=== PATIENT | male | born 1940 | race Caucasian/White ===

== ENCOUNTER 2016-10-27 16:11 | Observation (INO) | payer MEDICARE ==
[2016-10-27] MEDS ORDERED: ACETAMINOPHEN 325 MG TABLET ONE ×2 (17:09→18:17)
[2016-10-27] MEDS ORDERED: ACETAMINOPHEN 325 MG TABLET PO ONE (17:10)
--- OUTSIDE RECORDS SUMMARY | 2016-10-27 17:12 | XMS REPORT | Continuity of Care Document ---
:1940 Author Organization [facility] ([facility]) Address [address] [place] [address] Phone [phone] Care Team Providers Name Role Phone Jo AnnSheldon mejía Primary Care Provider [phone] Source Comments This disclosure is being made pursuant to the Care Everywhere program, applicable federal and state laws, and may not contain all informaitonavailable regarding this patient.[facility] ([facility]) Active Allergies and Adverse Reactions No Known Allergies Current Medications Prescription Sig. Disp. Refills Start Date End Date Status aspirin 81 mg tablet Take 81 mg by mouth Active daily. cloNIDine 0.1 mg Take 0.05 mg by Active tablet mouth 2 times daily . doxazosin 4 mg tablet Take 4 mg by mouth Active daily. finasteride 5 mg Take 5 mg by mouth Active tablet daily. glimepiride 4 mg Take 8 mg by mouth Active tablet Every morning. labetalol 300 mg Take 600 mg by mouth Active tablet 2 times daily. insulin glargine inject 50 Units Active (LANTUS) 100 unit/mL subcutaneously at injection vial bedtime. furosemide 40 mg Take 40 mg by mouth Active tablet daily. lisinopril 40 mg Take 40 mg by mouth Active tablet 2 times daily. metFORMIN (GLUMETZA) Take 1,000 mg by Active 500 mg XR tablet mouth at bedtime. simvastatin 20 mg Take 20 mg by mouth Active tablet every evening. albuterol-ipratropium Use 3 mL by Active (DUONEB) 2.5-0.5 mg/3 inhalation every 6 mL inhalation hours as needed. solution amLODIPine 2.5 mg Take 2.5 mg by mouth Active tablet every morning before breakfast. flunisolide 0.025 % use 2 Sprays into 25 mL 11 09/14/2014 Active nasal spray both nostrils 2 times daily. Indications: CHRONIC NON-ALLERGIC RHINITIS spironolactone 25 mg Take 0.5 Tabs (12.5 30 Tab 6 01/02/2015 Active tablet mg total) by mouth daily cyanocobalamin Take 1,000 mcg by Active (VITAMIN B-12) 1,000 mouth daily mcg tablet folic acid 400 mcg Take 0.8 mg by mouth Active tablet daily rivastigmine 9.5 Apply 1 Patch (9.5 30 Patch 11 07/17/2016 Active mg/24 hour patch mg total) topically daily. Active Problems Problem Noted Date Mild cognitive impairment 06/10/2015 Hypokalemia 03/17/2013 Hypertension 03/17/2013 Hyperaldosteronism 03/17/2013 Type II or unspecified type diabetes mellitus without mention of 02/01/2013 complication, not stated as uncontrolled HTN (hypertension) 02/01/2013 Skin cancer 02/01/2013 Pneumonia, organism unspecified 02/01/2013 Calculus of kidney 09/27/2006 Calculus of ureter 09/27/2006 Resolved Problems Problem Noted Date Resolved Date Speech problem 01/03/2015 06/10/2015 Overview: Started rather acutely approximately 6 months ago, per pt Immunizations Name Dates Previously Given Next Due Influenza, unspecified 06/18/2015,06/30/2014,05/30/2012 Pneumococcal Polysaccharide, PPSV23 03/09/2013 (Pneumovax 23) Pneumococcal, unspecified 08/30/2010 Social History Tobacco Use Types Packs/Day Years Used Date Never Smoker Smokeless Tobacco: Never Used Tobacco Cessation:Counseling Given: Yes Comments: Last Filed Vital Signs Vital Sign Reading Time Taken Blood Pressure 194/90 07/17/2016 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 Pulse 81 07/17/2016 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 Temperature 37.6 C (99.7 F) 01/02/2015 10:25 AM CDT Respiratory Rate 20 01/02/2015 10:25 AM CDT Height 1.778 m (5' 10") 07/17/2016 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 Weight 96.9 kg (213 lb 10 oz) 07/17/2016 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 Body Mass Index 30.65 07/17/2016 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 Oxygen Saturation 96% 07/17/2016 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 Plan of Care Date Type Specialty Providers Description 11/20/2016 Appointment Neurology Yoselyn Boston MD Chief Comp: Patient [address] [place] [address] [phone] (Fax) Health Maintenance Due Date Last Done Comments Hepatitis B Vaccine (1 of 3 - Primary 1940 Series) Tdap Vaccine 11/18/1951 DIABETIC: Cholesterol 1958 Diabetic: Hdl 1958 DIABETIC: Hemoglobin A1C 1958 Diabetic: Ldl 1958 DIABETIC: Microalbumin 1958 DIABETIC: Triglycerides 1958 Td Vaccine 1958 Colonoscopy 1990 Prostate Cancer Screening 1990 Zoster Vaccine 2000 DIABETIC: Foot Exam 03/28/2013 DIABETIC: Retinal Eye Exam 03/28/2013 Pneumococcal Vaccine (2 of 2 - PCV13) 03/09/2014 03/09/2013 Influenza Vaccine: Seasonal (#1) 03/30/2016 06/18/2015, 06/30/2014, 05/30/2012 Results from Last 3 Months Not on file
--- NOTE | 2016-10-27 17:21 | ERNOTE ---
Date of Service: 10/27/16 Time Seen by Provider: 10/27/16 17:03 Stated Complaint: DIAPHORETIC, LOW O2 Presenting Symptoms:: cough Source: patient, family, RN notes reviewed Exam Limitations: hard of hearing Immunizations: IMMUNIZATION HX Immunizations Up to Date Yes History of Influenza Vaccine Yes Hx Pneumococcal Vaccination No Allergies/Adverse Reactions: Allergies No Known Allergies Allergy (Verified 10/31/12 21:26) Home Medications: HOME MEDICATIONS Albuterol Sulfate/Ipratropium [Duoneb 2.5-0.5MG/3ML Soln] 3 ml IH QID PRN [Last Taken Unknown] Amlodipine Besylate [Norvasc] 2.5 mg PO BID 10/27/16 [Last Taken Unknown] Aspirin [Aspirin EC] 81 mg PO DAILY 10/27/16 [Last Taken Unknown] Clonidine HCl [Clonidine HCl ER] 0.1 mg PO BID 10/27/16 [Last Taken Unknown] Cyanocobalamin (Vitamin B-12) [B-12] 1,000 mcg PO DAILY 10/27/16 [Last Taken Unknown] Doxazosin Mesylate [Cardura Xl] 4 mg PO DAILY 10/27/16 [Last Taken Unknown] Finasteride [Proscar] 5 mg PO DAILY 10/27/16 [Last Taken Unknown] Folic Acid 0.8 mg PO DAILY 10/27/16 [Last Taken Unknown] Furosemide [Lasix] 40 mg PO DAILY 10/27/16 [Last Taken Unknown] Glimepiride 8 mg PO DAILY 10/27/16 [Last Taken Unknown] Insulin Glargine,Hum.rec.anlog [Lantus] 25 units SC HS 10/27/16 [Last Taken Unknown] Insulin Glargine,Hum.rec.anlog [Lantus] 45 units SC DAILY 10/27/16 [Last Taken Unknown] Labetalol HCl [Trandate] 600 mg PO BID 10/27/16 [Last Taken Unknown] Lisinopril [Zestril] 40 mg PO DAILY 10/27/16 [Last Taken Unknown] Melatonin 5 mg PO HS 10/27/16 [Last Taken Unknown] Metformin HCl [Metformin HCl ER] 1,000 mg PO HS 10/27/16 [Last Taken Unknown] Metformin HCl [Metformin HCl ER] 500 mg PO DAILY 10/27/16 [Last Taken Unknown] Rivastigmine [Exelon] 9.5 each TD 10/27/16 [Last Taken Unknown] Simvastatin 20 mg PO DAILY 10/27/16 [Last Taken Unknown] Spironolactone [Aldactone] 12.5 mg PO DAILY 10/27/16 [Last Taken Unknown] - History of Present Ilness Narrative: 75 year old male arrived to the ED. Walk in clinic stated he was diaphoretic and confused. states that his condition changed today after lunch when he became SOB and confused. stated that he has had a cough for about a week and patient states he has had some phlegm with the cough. denies any other issues at this time. Timing: getting worse Severity: moderate Modifying Factors - Improves: Reports: rest Modifying Factors - Worsens: Reports: activity Associated Symptoms: Reports: cough, shortness of breath, wheezing, fever/ chills. Denies: chest pain/soreness, nasal congestion, nasal drainage, dizziness, lightheadedness, earache, headache, sore throat, muscle aches Prior Treatment: Reports: other - sent here from walk in clinic Review of Systems - Review of Systems Constitutional: Present: See HPI, fever, diaphoresis EYE: Present: no symptoms reported ENT: Present: no symptoms reported Respiratory: Present: shortness of breath, cough, wheezing Cardiology: Present: no symptoms reported - tachy Gastrointestinal/Abdominal: Present: no symptoms reported Genitourinary: Present: no symptoms reported Musculoskeletal: Present: no symptoms reported Skin: Present: no symptoms reported Neurological: Present: See HPI, pre-existing deficit - per he has dementia Endocrine: Present: no symptoms reported, other - glucose 300+ Hematologic/Lymphatic: Present: no symptoms reported Psych: Present: no symptoms reported - Patient's Past Medical History Patient History - Medical: Anxiety, Diabetes Type 2 Insulin Dependent, Depression Patient History - Cardiac/Respiratory: Hypertension, Hyperlipidemia Patient History - Cancer: No Hx of Cancer Patient History - Other: None - Social History Living Situations: home Abuse History: No History of abuse Psych History: Hx of Anxiety, Hx of Depression Smoking Status: Never smoker Have you smoked in the past 12 months: No Do you dip or chew tobacco: No Alcohol Use: none Drug Use: none - Immunizations Immunizations Up to Date: Yes Hx Pneumococcal Vaccination: No History of Influenza Vaccine: Yes Physical Exam - Physical Exam General Appearance: Present: wd/wn, alert, moderate distress Eye Exam: Normal inspection: bilateral Ears, Nose, Throat: Present: normal ENT inspection, normal pharynx. Absent: nasal congestion, sinus pain/drainage Neck: Present: normal inspection Respiratory: Present: accessory muscle use, decreased breath sounds, rhonchi - left lobe very coarse Cardiovascular/Chest: Present: tachycardia Peripheral Pulses: N=norm/S=strong/W=weak/B=bound/A=absent: Radial (R): Normal, Radial (L): Normal, Dorsalis-pedis (R): Normal, Dorsalis-pedis (L): Normal Gastrointestinal/Abdominal: Present: normal bowel sounds, nontender Back Exam: Present: normal inspection Extremity Exam: Present: normal inspection Neurological Exam: Present: alert, oriented, normal mood/affect Skin Exam: Present: diaphoresis. Absent: skin rash Lymphatic Exam: Present: no adenopathy ED Progress - Results and Orders Patient's Lab Results:: I have reviewed the patient's lab results. - Vital Signs Patient's Vital Signs:: I have reviewed the patient's vital signs. Vital Signs: Vital Signs 10/27/16 16:17 Temperature 38.7 C H Pulse Rate 98 Respiratory 23 H Rate Blood Pressure 167/80 O2 Sat by Pulse 94 Oximetry - EKG EKG: NSR EKG read: Reviewed by me - X-Ray X-Ray #1 X-Ray: chest Interpretation: Reviewed by me X-ray Comments: Findings: The cardiac silhouette is mildly prominent with left ventricular prominence; this is unchanged. The mediastinum and hilum appear unchanged. Again seen is a thoracic scoliosis, which is unchanged. There is some linear density in both lung bases, most likely reflecting scar or atelectasis. This is similar to the previous study. The lung alvares are otherwise clear. I do not see evidence for an infiltrate, effusion or pulmonary edema. IMPRESSION: 1. NO ACUTE CARDIOPULMONARY PROCESS. 2. BORDERLINE PROMINENT HEART, UNCHANGED. 3. LINEAR SCARRING/ATELECTASIS IN BOTH LUNG BASES. 4. THORACIC SCOLIOSIS Electronically signed by Calin Villaseñor M.D.. - CT/Ultrasound CT/Ultrasound Narrative: PE protocol performed Limited eval was able to be complete. Prelim report showed subtle decreass filling defect-density left lower PA, Image 79 may represent artifact although very subtle pulmonary embolus not excluded. - Progress/Reassessment Chief Complaint: Cough Progress:: Unchanged Plan - Plan Plan: blood cultures x 2 urine reflex. admit to med surg. Patient presented with cough and fever, cbc shows left shift. No obv PNA on CXR. patient continues to have crackles and ronchi in left lung. O2 sats in 90's which is not normal for this patient. hospitalis contacted and will admit for obvs status Departure - Departure Clinical Impression: COPD exacerbation Disposition: [facility] Condition: Stable
[2016-10-27 17:23] LABS: Hematocrit 40.8 % (42.0-52.0); Mean Cell Volume 89.7 fl (78-100); Mean Corpuscular Hemoglobin 30.8 pg (27-31); Mean Corpuscular Hgb Conc 34.3 g/dl (32-36); Mean Platelet Volume 10.2 fl (6.0-9.5); Neutrophil # 9.2 K/mm3 (1.3-6.0); Neutrophil % 89.3 % (42-75.0); Platelet Count 190 K/mm3 (150-450); Red Blood Count 4.55 M/mm3 (4.7-6.0); Red Cell Distribution Width 12.5 % (11.5-14.0); White Blood Count 10.3 K/mm3 (4.0-10.5)
[2016-10-27 17:39] LABS: Anion Gap 13.8 mmol/L (6.8-13.8); BUN/Creatinine Ratio 16.2 (9.0-21.6); Bilirubin, Total 0.8 mg/dL (0.0-1.1); Ca. Corrected For Albumin 8.6 mg/dL (8.4-10.2); Calcium * 8.9 mg/dL (7.9-10.9); Potassium 4.8 mmol/L (3.4-4.6); Total Protein 7.3 gm/dL (6.2-8.2)
[2016-10-27] MEDS ORDERED: ALBUTEROL SULFATE/IPRATROPIUM 3 ML NEBU IH ONE ×2 (18:10→18:16)
[2016-10-27] MEDS ORDERED: NORMAL SALINE 1,000 ML IV ONE (18:40)
[2016-10-27 19:01] LABS: Urine Bilirubin Negative (NEGATIVE); Urine Blood Negative /ul (NEGATIVE); Urine Ketone 5 mg/dL (NEGATIVE); Urine Nitrite Negative (NEGATIVE); Urine Protein Negative (NEGATIVE); Urine Specific Gravity 1.015 SP.GR. (1.005-1.030); Urine Urobilinogen Normal (NORMAL); Urine pH 5.5 pH (5.0-7.0)
[2016-10-27 19:14] LABS: Urine Appearance Clear; Urine Bacteria None Seen; Urine Color Yellow; Urine Mucus Few - 1+; Urine RBC None Seen /hpf (0-5); Urine WBC 0-5 /hpf (0-5)
--- OUTSIDE RECORDS SUMMARY | 2016-10-27 21:38 | XMS REPORT | Continuity of Care Document ---
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 Pulse 81 07/17/2016 4:02 PM [employer] SKILLS CO[employer] Temperature 37.6 C (99.7 F) 01/02/2015 10:25 AM CDT Respiratory Rate 20 01/02/2015 10:25 AM CDT Height 1.778 m (5' 10") 07/17/2016 4:02 PM LIFE SK[employer] COACH Weight 96.9 kg (213 lb 10 oz) 07/17/2016 4:02 PM LIFE SK[employer] COACH Body Mass Index 30.65 07/17/2016 4:02 PM [employer] SK[employer] COACH Oxygen Saturation 96% 07/17/2016 4:02 PM LIFE SKILL[employer] COACH Plan of Care Date Type Specialty Providers Description 11/20/2016 Appointment Neurology Yoselyn Boston MD Chief Comp: Patient [address] [place] [address] [phone] (Fax) Health Maintenance Due Date Last Done [...]
[2016-10-27] MEDS ORDERED: guaiFENesin 100 MG/5 ML BTL PO PRN (23:29)
[2016-10-27] MEDS ORDERED: BENZONATATE 100 MG CAPSULE PO PRN (23:31)
[2016-10-27] MEDS ORDERED: ALBUTEROL SULFATE/IPRATROPIUM 3 ML NEBU IH PRN (23:34)
--- NOTE | 2016-10-28 00:06 | HP ---
Chief Complaint - Chief Complaint Date of Service: 10/27/16 Time of Service: 23:00 Chief Complaint: Cough History of Present Illness: 75 years old male adm to the hospital from ER with reports of productive cough with clear sputum. pt stated he was brought to the ER because he was having cough and shortness of breath at home. pt is a poor historian and additional information obtained from previous records. PMH significant for COPD, diabetes, hypertension,hyperlipidemia,BPH, kidney stone, hyperaldosderonism, anxiety and dementia. in ER CXR obtained no acute disease process, CT chest negative for PE. - Patient's Past Medical History Patient History - Medical: Anxiety, Diabetes Type 2 Insulin Dependent, Depression, Kidney stone - 5.5mm upper pole right kidney, BPH,, Osteoarthritis, Other - RLS Patient History - Cardiac/Respiratory: COPD, Hypertension, Hyperlipidemia Patient History - Cancer: No Hx of Cancer Patient History - Surgical Procedures: Cataracts, Total Hip Replacement - Right hip, Other - lithotripsy, hernia repair, Hernia Repair, Urology - cystoscopy Patient History - Other: None - Family History Mother Family History - Medical: Family History - Cardiac/Respiratory: Coronary Heart Disease Family History - Cancer: Melanoma Father Family History - Medical: Family History - Cardiac/Respiratory: Myocardial Infarction - Social History Living Situations: home Abuse History: No History of abuse Psych History: Hx of Anxiety, Hx of Depression Smoking Status: Never smoker Have you smoked in the past 12 months: No Do you dip or chew tobacco: No Alcohol Use: none Drug Use: none - Immunizations Immunizations Up to Date: Yes Hx Pneumococcal Vaccination: No History of Influenza Vaccine: Yes Review Of Systems (GEN) - Review of Systems Generalized/Overall Review: Present: No Symptoms Reported EENTM: Present: No Symptoms Reported Respiratory: Present: Cough Cardiac: Present: No Symptoms Reported Abdominal: Present: No Symptoms Reported Genitourinary: Present: No Symptoms Reported Musculoskeletal: Present: No Symptoms Reported Neurological: Present: No Symptoms Reported Skin: Present: No Symptoms Reported Immunizations: IMMUNIZATION HX Immunizations Up to Date Yes History of Influenza Vaccine Yes Hx Pneumococcal Vaccination No Allergies/Adverse Reactions: Allergies Allergy/AdvReac Type Severity Reaction Status Date / Time No Known Allergies Allergy Verified 10/31/12 21:26 Home Medications: HOME MEDICATIONS Albuterol Sulfate/Ipratropium [Duoneb 2.5-0.5MG/3ML Soln] 3 ml IH QID PRN [Last Taken Unknown] Amlodipine Besylate [Norvasc] 2.5 mg PO BID 10/27/16 [Last Taken Unknown] Aspirin [Aspirin EC] 81 mg PO DAILY 10/27/16 [Last Taken Unknown] Clonidine HCl [Clonidine HCl ER] 0.1 mg PO BID 10/27/16 [Last Taken Unknown] Cyanocobalamin (Vitamin B-12) [B-12] 1,000 mcg PO DAILY 10/27/16 [Last Taken Unknown] Doxazosin Mesylate [Cardura Xl] 4 mg PO DAILY 10/27/16 [Last Taken Unknown] Finasteride [Proscar] 5 mg PO DAILY 10/27/16 [Last Taken Unknown] Folic Acid 0.8 mg PO DAILY 10/27/16 [Last Taken Unknown] Furosemide [Lasix] 40 mg PO DAILY 10/27/16 [Last Taken Unknown] Glimepiride 8 mg PO DAILY 10/27/16 [Last Taken Unknown] Insulin Glargine,Hum.rec.anlog [Lantus] 25 units SC HS 10/27/16 [Last Taken Unknown] Insulin Glargine,Hum.rec.anlog [Lantus] 45 units SC DAILY 10/27/16 [Last Taken Unknown] Labetalol HCl [Trandate] 600 mg PO BID 10/27/16 [Last Taken Unknown] Lisinopril [Zestril] 40 mg PO DAILY 10/27/16 [Last Taken Unknown] Melatonin 5 mg PO HS 10/27/16 [Last Taken Unknown] Metformin HCl [Metformin HCl ER] 1,000 mg PO HS 10/27/16 [Last Taken Unknown] Metformin HCl [Metformin HCl ER] 500 mg PO DAILY 10/27/16 [Last Taken Unknown] Rivastigmine [Exelon] 9.5 mg TD DAILY 10/27/16 [Last Taken Unknown] Simvastatin 20 mg PO DAILY 10/27/16 [Last Taken Unknown] Spironolactone [Aldactone] 12.5 mg PO DAILY 10/27/16 [Last Taken Unknown] Exam - Exam Vital Signs: Vital Signs - Last Taken Temp 36.8 C 10/27/16 21:36 Pulse 94 10/27/16 21:45 Resp 20 10/27/16 21:45 BP 151/79 10/27/16 21:45 Pulse Ox 93 10/27/16 21:45 Constitutional: Present: Cooperative, No distress, Elderly, Obese ENT Exam: Present: moist mucous membranes Eye Exam: bilateral eye: PERRL Neck: Present: full range of motion Back Exam: Present: no CVA tenderness Breasts: Present: Exam deferred Respiratory: Present: chest non-tender, normal breath sounds, no respiratory distress, no accessory muscle use, No rales Cardiovascular/Chest: Present: normal peripheral pulses, regular rate, rhythm, no chest tenderness, no edema, no gallop, no JVD Peripheral Pulses: radial (R): 3+, radial (L): 3+ Abdomen: Present: Normal bowel sounds, soft, nontender, nondistended, no rebound tenderness /Rectal: Present: Exam deferred Extremity: Present: normal range of motion, non-tender, normal inspection, no pedal edema, no calf tenderness Skin Exam: Present: normal color Neurologic: Present: alert, normal mood/affect Appearance: Present: appropriate appearance Eye contact: Present: cooperative Thoughts: Present: normal thought pattern Diagnostic Studies: Laboratory Results WBC 10.3 K/mm3 (4.0-10.5) 10/27/16 17:20 RBC 4.55 M/mm3 (4.7-6.0) L 10/27/16 17:20 Hgb 14.0 gm/dL (13.5-18.0) 10/27/16 17:20 Hct 40.8 % (42.0-52.0) L 10/27/16 17:20 MCV 89.7 fl (78-100) 10/27/16 17:20 MCH 30.8 pg (27-31) 10/27/16 17:20 MCHC 34.3 g/dl (32-36) 10/27/16 17:20 RDW 12.5 % (11.5-14.0) 10/27/16 17:20 Plt Count 190 K/mm3 (150-450) 10/27/16 17:20 MPV 10.2 fl (6.0-9.5) H 10/27/16 17:20 Immature Gran % (Auto) 0.80 % (0.001-0.429) H 10/27/16 17:20 Immature Gran # (Auto) 0.08 K/mm3 (0.000-0.0310) H 10/27/16 17:20 Neutrophils % 89.3 % (42-75.0) H 10/27/16 17:20 Lymphocytes % 4.8 % (20-51) L 10/27/16 17:20 Monocytes % 4.7 % (0.0-9) 10/27/16 17:20 Eosinophils % 0.1 % (0.0-3.0) 10/27/16 17:20 Basophils % 0.3 % (0.0-1.0) 10/27/16 17:20 Nucleated RBC % 0.0 k/mm3 (0-1) 10/27/16 17:20 Neutrophils # 9.2 K/mm3 (1.3-6.0) H 10/27/16 17:20 Lymphocytes # 0.5 k/mm3 (1.5-3.5) L 10/27/16 17:20 Monocytes # 0.5 k/mm3 (0.0-1.0) 10/27/16 17:20 Eosinophils # 0.0 k/mm3 (0.0-0.7) 10/27/16 17:20 Absolute Basophils 0.0 k/mm3 (0.0-0.1) 10/27/16 17:20 Sodium 136 mmol/L (132-142) 10/27/16 17:20 Plasma Sodium 140 mmol/L (130-142) 10/27/16 17:20 Potassium 4.8 mmol/L (3.4-4.6) H 10/27/16 17:20 Chloride 100 mmol/L (97-106) 10/27/16 17:20 Carbon Dioxide 27.0 mmol/L (24-32.6) 10/27/16 17:20 Anion Gap 13.8 mmol/L (6.8-13.8) 10/27/16 17:20 BUN 23 mg/dL (6-23) D 10/27/16 17:20 Creatinine 1.42 mg/dL (0.4-1.4) H D 10/27/16 17:20 Est GFR (Non-Af Amer) 52 mL/min (60-130) L D 10/27/16 17:20 BUN/Creatinine Ratio 16.2 (9.0-21.6) 10/27/16 17:20 Random Glucose 342 mg/dL (70-110) H 10/27/16 17:20 Calcium 8.9 mg/dL (7.9-10.9) 10/27/16 17:20 Calcium Adj for Albumin 8.6 mg/dL (8.4-10.2) 10/27/16 17:20 Total Bilirubin 0.8 mg/dL (0.0-1.1) 10/27/16 17:20 AST 17 U/L (0-48) 10/27/16 17:20 ALT 45 U/L (19-67) 10/27/16 17:20 Alkaline Phosphatase 79 U/L (50-170) 10/27/16 17:20 Total Protein 7.3 gm/dL (6.2-8.2) 10/27/16 17:20 Albumin 4.0 gm/dl (3.4-5.0) 10/27/16 17:20 Urine Color Yellow 10/27/16 18:35 Urine Appearance Clear 10/27/16 18:35 Urine pH 5.5 pH (5.0-7.0) 10/27/16 18:35 Ur Specific Keavy 1.015 SP.GR. (1.005-1.030) 10/27/16 18:35 Urine Protein Negative mg/dL (NEGATIVE) 10/27/16 18:35 Urine Glucose (UA) >=1000 mg/dL (NEGATIVE) H 10/27/16 18:35 Urine Ketones 5 mg/dL (NEGATIVE) 10/27/16 18:35 Urine Blood Negative /ul (NEGATIVE) 10/27/16 18:35 Urine Nitrate Negative (NEGATIVE) 10/27/16 18:35 Urine Bilirubin Negative mg/dl (NEGATIVE) 10/27/16 18:35 Urine Urobilinogen Normal EU/dl (NORMAL) 10/27/16 18:35 Ur Leukocyte Esterase Negative /ul (NEGATIVE) 10/27/16 18:35 Urine RBC None seen /hpf (0-5) 10/27/16 18:35 Urine WBC 0-5 /hpf (0-5) 10/27/16 18:35 Ur Epithelial Cells Trace /hpf (0-5) 10/27/16 18:35 Urine Bacteria None seen (NONE) 10/27/16 18:35 Urine Mucus Few - 1+ (NONE) H 10/27/16 18:35 Urine Culture Comments No culture indicated 10/27/16 18:35 Influenza Type A Ag Negative (NEGATIVE) 10/27/16 17:06 Influenza Type B Ag Negative (NEGATIVE) 10/27/16 17:06 Assessment/Plan - Narrative Narrative: COPD exacerbation secondary to URI Neb treatment schedule and PRN Supplemented oxygen and keep sat above 89% Encourage use of cornet Give dose of solumedrol and Robitussin tonight Give dose Rocephin and Azithromycin tonight Pulmicort BID Diabetes Accu-check AC+Hs and sliding scale On adm BG 342--->228. likely will be elevated in the morning secondary to solumedrol use overnight. Carb consistent diet On adm hold metformin Hypertension On adm BP 151/79 Monitor vital signs Resume home dose of medications Code status : Full VTE ppx ambulate and SCD while in bed GI ppx: Pepcid Anticipate discharge tomorrow. - Assessment/Plan (1) Diabetes Problem: Chronic (2) Hypertension Problem: Chronic (3) COPD exacerbation Problem: Acute
[2016-10-28] MEDS ORDERED: AZITHROMYCIN 250 MG TABLET PO STA (00:43)
[2016-10-28] MEDS: ALBUTEROL SULFATE/IPRATROPIUM 3 ML NEBU IH SCH ×4 (00:49→18:21)
[2016-10-28 02:06] LABS: Urine Bilirubin Negative (NEGATIVE); Urine Blood Negative /ul (NEGATIVE); Urine Ketone Negative (NEGATIVE); Urine Nitrite Negative (NEGATIVE); Urine Protein Negative (NEGATIVE); Urine Specific Gravity 1.015 SP.GR. (1.005-1.030); Urine Urobilinogen Normal (NORMAL); Urine pH 5.5 pH (5.0-7.0)
[2016-10-28 02:22] LABS: Urine Amorphous Sediment Few - 1+ (NONE-FEW); Urine Appearance Clear; Urine Bacteria None Seen; Urine Color Yellow; Urine Mucus Few - 1+; Urine RBC 0-5 /hpf (0-5); Urine WBC 0-5 /hpf (0-5)
[2016-10-28 05:47] LABS: Anion Gap 13.3 mmol/L (6.8-13.8); BUN/Creatinine Ratio 18.8 (9.0-21.6); Calcium * 8.2 mg/dL (7.9-10.9); Carbon Dioxide 25.5 mmol/L (24-32.6); Estimated Creat Clear 65.2; Potassium 3.8 mmol/L (3.4-4.6)
[2016-10-28] MEDS: BUDESONIDE 0.5 MG/2 ML VIAL.NEB IH SCH ×2 (06:19→18:22)
[2016-10-28] MEDS: INSULIN LISPRO 100 UNITS/ML VIAL SC SCH ×3 (07:30→18:04)
[2016-10-28] MEDS ORDERED: LABETALOL HCL 300 MG TABLET PO SCH (09:00)
[2016-10-28] MEDS ORDERED: DOXAZOSIN MESYLATE 2 MG TABLET PO SCH (09:00)
[2016-10-28] MEDS ORDERED: FINASTERIDE 5 MG TABLET PO SCH (09:00)
[2016-10-28] MEDS ORDERED: LISINOPRIL 40 MG TABLET PO SCH (09:00)
[2016-10-28] MEDS ORDERED: SPIRONOLACTONE 25 MG TABLET PO SCH (09:00)
[2016-10-28] MEDS ORDERED: LABETALOL HCL 200 MG TABLET PO SCH (09:00)
[2016-10-28] MEDS ORDERED: INSULIN GLARGINE,HUM.REC.ANLOG 100 UNITS/ML VIAL SC SCH ×2 (09:00→21:00)
[2016-10-28] MEDS ORDERED: amLODIPine BESYLATE 5 MG TABLET PO SCH (09:00)
[2016-10-28] MEDS ORDERED: SIMVASTATIN 20 MG TABLET PO SCH ×2 (09:00→21:00)
[2016-10-28] MEDS ORDERED: FAMOTIDINE 20 MG TABLET PO SCH (09:00)
[2016-10-28] MEDS ORDERED: RIVASTIGMINE 9.5 MG TD SCH (09:00)
[2016-10-28] MEDS ORDERED: ASPIRIN 81 MG TABLET.DR PO SCH (09:00)
[2016-10-28] MEDS ORDERED: FUROSEMIDE 40 MG TABLET PO SCH (09:00)
[2016-10-28] MEDS ORDERED: CLONIDINE HCL 0.1 MG TABLET PO SCH (09:00)
[2016-10-28] MEDS ORDERED: FOLIC ACID 0.4 MG TABLET PO SCH (09:00)
[2016-10-28] MEDS ORDERED: CYANOCOBALAMIN 1,000 MCG TABLET PO SCH (09:00)
[2016-10-28] MEDS ORDERED: GLIMEPIRIDE 4 MG TABLET PO SCH (09:00)
[2016-10-28 15:01] VITALS: BP 153/58
--- NOTE | 2016-10-28 17:51 | DS ---
(1) COPD exacerbation Problem: Resolved (2) Diabetes Problem: Chronic Qualifiers: Diabetes mellitus type: type 2 (3) Hypertension Problem: Chronic Qualifiers: Hypertension type: essential hypertension Qualified Code(s): I10 - Essential (primary) hypertension Description of Stay: Willy Patel, is a 75 years old male ,adm to the hospital from ER on with reports of productive cough with clear sputum. pt stated he was brought to the ER because he was having cough and shortness of breath at home. pt is a poor historian and additional information obtained from previous records. PMH significant for COPD, diabetes, hypertension,hyperlipidemia,BPH, kidney stone, hyperaldosderonism, anxiety and dementia. in ER CXR obtained no acute disease process, CT chest negative for PE. He was admitted for COPD exacerbation and was started on breathing treaments and IV antibitoics. IV solumedrol was hled due to a severe interaction with one of his meds. he improved clinically and is Stable to be discharged today. Procedures Performed: none Discharge Disposition: Home self care Disposition: Home self-care Condition: Good Discharge Activity: Activity as tolerated Discharge Diet: Consistent carbs Additional Patient Instructions (free text): Follow up with PCP in 1 week. Prescriptions (Any new or edited meds): Albuterol Sulfate [Proair Hfa] 1 puff IH Q4H PRN #1 inhaler PRN Reason: Shortness Of Breath Azithromycin [Zithromax] 250 mg PO DAILY #7 tablet Benzonatate [Tessalon] 100 mg PO TID PRN #30 capsule PRN Reason: Cough Budesonide [Pulmicort Respules] 0.5 mg IH BIDRT #1 vial.neb Complete Home Medications List: Complete Home Medication List: Albuterol Sulfate/Ipratropium [Duoneb 2.5-0.5MG/3ML Soln] 3 ml IH QID PRN Amlodipine Besylate [Norvasc] 2.5 mg PO BID 10/27/16 Aspirin [Aspirin EC] 81 mg PO DAILY 10/27/16 Clonidine HCl [Clonidine HCl ER] 0.1 mg PO BID 10/27/16 Cyanocobalamin (Vitamin B-12) [B-12] 1,000 mcg PO DAILY 10/27/16 Doxazosin Mesylate [Cardura Xl] 4 mg PO DAILY 10/27/16 Finasteride [Proscar] 5 mg PO DAILY 10/27/16 Folic Acid 0.8 mg PO DAILY 10/27/16 Furosemide [Lasix] 40 mg PO DAILY 10/27/16 Insulin Glargine,Hum.rec.anlog [Lantus] 25 units SC HS 10/27/16 Insulin Glargine,Hum.rec.anlog [Lantus] 45 units SC DAILY 10/27/16 Labetalol HCl [Trandate] 600 mg PO BID 10/27/16 Lisinopril [Zestril] 40 mg PO DAILY 10/27/16 Melatonin 5 mg PO HS 10/27/16 Metformin HCl [Metformin HCl ER] 1,000 mg PO HS 10/27/16 Metformin HCl [Metformin HCl ER] 500 mg PO DAILY 10/27/16 Rivastigmine [Exelon] 9.5 mg TD DAILY 10/27/16 Simvastatin 20 mg PO DAILY 10/27/16 Spironolactone [Aldactone] 12.5 mg PO DAILY 10/27/16 Albuterol Sulfate [Proair Hfa] 1 puff IH Q4H PRN #1 inhaler 10/28/16 Azithromycin [Zithromax] 250 mg PO DAILY #7 tablet 10/28/16 Benzonatate [Tessalon] 100 mg PO TID PRN #30 capsule 10/28/16 Budesonide [Pulmicort Respules] 0.5 mg IH BIDRT #1 vial.neb 10/28/16
== END 2016-10-28 18:38 | disposition home or self-care (01) ==
LOC: ER 16:11 → MS 21:34
PROVIDERS: ADMIT Nurse Practitioner; ATTEND Internal Medicine
DX: J44.1 Chronic obstructive pulmonary disease with (acute) exacerbation (principal); J06.9 Acute upper respiratory infection, unspecified; E11.9 Type 2 diabetes mellitus without complications; I10 Essential (primary) hypertension
CPT/HCPCS: 36415; 71020; 71275; 80048; 80053; 81001; 85025; 87040; 87400; 93005; 94640; 96365; 96372; 96375; 99284; G0378